=== PATIENT | male | born 1960 | race Caucasian/White ===

== ENCOUNTER 2018-01-02 07:02 | Inpatient (IN) | payer OTHER ==
[2018-01-02] VITALS (27 sets, daily range): BP systolic 131–233; BP diastolic 79–175
[~2018-01-02] VITALS: Ht 180.3 cm; Wt 113.2 kg
--- NOTE | ~2018-01-02 | HC ---
[facility] [place] [address] CONSULTATION Name: CHIQUITAMEG Mabel Room #: 210-P ADM IN M.R.#: [id number] Admission: 01/02/18 Attend Phys: Darius Shelby DO Discharge: Date of : 64 Report #: [id number] THIS REPORT FOR: //name// CC: Darius Batistaen Oj DATE OF SERVICE: 01/06/2018 HISTORY OF PRESENT ILLNESS: The patient is a 57-year-old white male who was admitted with acute shortness of breath with respiratory failure. During his hospitalization, he had the onset of weakness of his left upper extremity with some symptoms involving the right upper extremity as well. He was seen by Neurology and noted to have left upper extremity weakness more than left lower extremity, and has been diagnosed with a CVA. He does not have multiple medical comorbidities and there was a question as to whether he did undergo an MRI or not, but he is going for an MRI of the brain later on today. He does have the diagnosis of a CVA with left-sided weakness, upper extremity more than lower extremity. He also has chronic kidney disease, likely stage 2 with some previous proteinuria. He has hypertension with cardiomyopathy. He is being closely monitored with Cardiology, Nephrology and Neurology all involved. He needs permissive hypertension because of his stroke. Renal has recommended, blood pressure of above 160 and Cardiology is involved as well. We are seeing him in rehabilitation medicine consultation. PAST MEDICAL HISTORY: Includes chronic pain syndrome with an intrathecal pump that has been nonfunctional since 2013. He has a history of asthma, pulmonary embolism, obstructive sleep apnea, multiple knee surgeries and is noted to be on disability. History of diabetes mellitus, obstructive sleep apnea. MEDICATIONS: Please see the full medication listing. ALLERGIES: TAPE, TETANUS TOXOID, BENZOIC ACID AND AMITRIPTYLINE. HABITS: No history of tobacco or alcohol abuse. SOCIAL HISTORY: He lives in an apartment alone. No adaptive devices, 6 steps in, 15 inside, on disability with lower extremity surgeries as noted above. He does have sisters who are involved. REVIEW OF SYSTEMS: Did not offer any current complaints of chest pain, shortness of breath, or abdominal discomfort. Complains of left upper extremity more than left lower extremity weakness. He also has some right upper extremity symptoms. PHYSICAL EXAMINATION: GENERAL: A 57-year-old ambidextrous white male, in no obvious distress. [address] [address] CONSULTATION Name: CHIQUITAMEG Mabel Room #: 210-P [facility] IN .R.#: [id number] Admission: 01/02/18 Attend Phys: Darius Shelby DO Discharge: Date of : 64 Report #: [id number] VITAL SIGNS: Last recorded temperature is 98.2, pulse 74, respirations 18, blood pressure 152/107. He is alert. HEENT: Appeared to be benign. NEUROLOGIC: Cranial nerves are grossly intact. Facies are symmetric. No obvious visual field neglect to confrontation. Functional range of motion of the right upper extremity. He may have some mild decreased coordination of that right upper extremity. Left upper extremity reveals clumsiness with weakness, proximal strength is a grade 4-; distally, he is 3+ to 4- except for left wrist extension, which was trace to none. His employee health nurse is only fair. Limited movement of the fingers and thumb with the appearance of decreased extension. Left lower extremity strength is a grade 4-, right lower extremity appeared 4-. He does have bilateral multiple well-healed incisions from prior knee surgeries. There is no focal calf swelling. He is contact guard with sit to stand and ambulated 5 steps contact guard. Toileting is max assist and is unable to use that left upper extremity functionally to assist with toileting. ASSESSMENT: A 57-year-old white male with the following problem list: 1. Cerebrovascular accident with left-sided hemiparesis, upper extremity more than lower extremity. 2. Acute respiratory failure. 3. Hypertensive emergency. 4. Elevated blood sugars with hemoglobin A1c, Accu-Cheks being checked. 5. Electrolyte abnormalities. 6. Chronic pain with malfunctioning intrathecal pump. 7. Obstructive sleep apnea. 8. Disability with prior multiple lower extremity surgeries. PLAN: He is to undergo an MRI of his brain. Therapies are working with him. He certainly may benefit from a short acute in-hospital inpatient rehabilitation stay to maximize his functional independence. He does have considerable comorbidity issues with monitoring of his blood pressure with allowed permissive hypertension with the multiple customs consultant physicians that are involved. The customs consultant physicians could continue to follow with him while he is on the acute rehab stark. We will be glad to follow along with you regarding his rehab therapy needs. <ELECTRONICALLY SIGNED> By: Joel Flores MD 01/07/18 0857 1224 [id number] Joel Flores MD /PRIYA
--- NOTE | ~2018-01-02 | 2DMMODE ---
[facility] [place] [employer] [place] [address] 2 D/M-MODE ECHOCARDIOGRAM Name: MEG PORRAS Room #: 246-P [facility] IN .R.#: [id number] Admission: 01/02/18 Attend Phys: Darius Shelby, Discharge: Date of : 64 Date of Service: 01/02/18 1522 Report #: [id number] THIS REPORT FOR: //name// APPROVED REPORT Study performed: 01/02/2018 13:43:28 EXAM: Comprehensive 2D, Doppler, and color-flow Echocardiogram Patient Location: ICU Room #: 246 Status: routine BSA: 0.84 HR: 61 bpm BP: 150/96 mmHg Other Information Study Quality: Adequate Indications Dyspnea Tachycardia Hypertension/HDD Echo Enhancing Agent Indication: Endocardial border delineation Agent(s) / Amount(s) Used: Optison 3 cc 2D Dimensions RVDd: 34.39 mm LVEF(%): 30.06 (>50%) IVSd: 14.78 (7-11mm) LVOT Diam: 23.46 (18-24mm) LVDd: 56.12 mm PWd: 14.95 (7-11mm) Ascending Ao: 33.28 (22-36mm) LVDs: 48.09 (25-40mm) Aortic Root: 30.91 mm IVC: 24.00 mm Combs's LVEF: 30.06 % Volumes Left Atrial Volume (Systole) Single Plane 4CH: 58.87 mL Single Plane 2CH: 75.64 mL LA ESV Index: 89.00 mL/m2 Aortic Valve AoV Peak Paul.: 1.10 m/s AO Peak Gr.: 4.88 mmHg LVOT Max P.98 mmHg LVOT Max V: 0.86 m/s [facility] [place] [employer] [place] [address] 2 D/M-MODE ECHOCARDIOGRAM Name: MEG PORRAS Room #: 246-P [facility] IN .R.#: [id number] Admission: 01/02/18 Attend Phys: Darius Shelby, Discharge: Date of : 64 Date of Service: 01/02/18 1522 Report #: [id number] YECENIA Vmax: 3.38 cm2 Pulmonary Valve PV Peak Paul.: 0.81 m/s PV Peak Gr.: 2.62 mmHg Tricuspid Valve TR Peak Paul.: 2.69 m/s TR Peak Gr.: 29.01 mmHg PA Pressure: 39.00 mmHg Left Ventricle Left ventricle is at the upper limits of normal. Moderate concentric left ventricular hypertrophy. Left ventricular ejection fraction is moderate to severely decreased. LVEF is 25-30%. This study is not technically sufficient to allow evaluation of the LV diastolic function. Right Ventricle The right ventricle is normal size. The right ventricular systolic function is normal. Atria Left atrium is dilated. Right atrium is at the upper limits of normal. Aortic Valve The aortic valve is normal in structure. No aortic regurgitation is present. There is no aortic valvular stenosis. Mitral Valve The mitral valve is normal in structure. Mild mitral regurgitation. No evidence of mitral valve stenosis. Tricuspid Valve The tricuspid valve is normal in structure. There is trace tricuspid regurgitation. Estimated PAP 39 mmHg There is mild-moderate pulmonary hypertension. Pulmonic Valve The pulmonary valve is normal in structure. Trace pulmonic regurgitation. Great Vessels The aortic root is normal in size. IVC is dilated and collapses <50% with inspiration. [facility] [address] [place] [address] 2 D/M-MODE ECHOCARDIOGRAM Name: MEG PORRAS Room #: 246-P [facility] IN .R.#: [id number] Admission: 01/02/18 Attend Phys: Darius Shelby, Discharge: Date of : 64 Date of Service: 01/02/18 1522 Report #: [id number] Pericardium Small circumferential pericardial effusion. <Conclusion> Left ventricle is at the upper limits of normal. Moderate concentric left ventricular hypertrophy. Left ventricular ejection fraction is moderate to severely decreased. LVEF is 25-30%. This study is not technically sufficient to allow evaluation of the LV diastolic function. The right ventricle is normal size. Left atrium is dilated. The aortic valve is normal in structure. There is no aortic valvular stenosis. Mild mitral regurgitation. There is trace tricuspid regurgitation. Estimated PAP 39 mmHg There is mild-moderate pulmonary hypertension. The aortic root is normal in size. Small circumferential pericardial effusion. <ELECTRONICALLY SIGNED> By: Francisco Burroughs MD, FACC 01/02/18 1522 1522 152 Francisco Burroughs MD, FACC /INF
--- NOTE | ~2018-01-02 | EKG ---
[place] [address] [address] [place] [address] ELECTROCARDIOGRAM REPORT Name: MEG PORRAS Room #: 210-P ADM IN M.R.#: [id number] Admission: 01/02/18 Attend Phys: Darius Shelby DO Discharge: Date of : 64 Report #: [id number] THIS REPORT FOR: //name// [facility] Test Date: 2018-01-05 Test Time: 09:59:43 Pat Name: MEG GOMEZMari Department: Room: 210 P Gender: M Wool Hat Flanger: RIVAS : 1960 Requested By: Phil Rodríguez Order Number: [id number] MD: Phil Rodríguez Measurements Intervals [place] Rate: 89 P: 49 OK: 141 QRS: -1 QRSD: 119 T: 191 QT: 411 QTc: 501 Interpretive Statements Sinus rhythm Probable left atrial enlargement LVH with secondary repolarization abnormality Electronically Signed On 01-05-2018 10:28:59 RECORDS MANAGEMENT CLERK by Phil Rodríguez [email or web address] <ELECTRONICALLY SIGNED> By: Phil Rodríguez MD 01/05/18 1028 0959 0959 Phil Rodríguez MD /JEVON
--- NOTE | ~2018-01-02 | EKG ---
[place] [address] [place] [address] ELECTROCARDIOGRAM REPORT Name: MEG PORRAS Room #: 246-P ADM IN M.R.#: [id number] Admission: 01/02/18 Attend Phys: Darius Shelby DO Discharge: Date of : 64 Report #: [id number] THIS REPORT FOR: //name// [facility] ED Test Date: 2018-01-02 Test Time: 07:08:22 Pat Name: MEG PORRAS Department: Room: 246 Gender: M Cemetery Workers Supervisor: Linda FRENCH : 1960 Requested By: Shamar Miguel Order Number: [id number] MD: Cas Avilez Measurements Intervals [place] Rate: 141 P: 0 [place]: QRS: -23 QRSD: 172 T: 135 QT: 371 QTc: 568 Interpretive Statements Wide complex tachycardia Left bundle branch block Compared to ECG 04/11/2013 10:43:06 Left bundle-branch block now present Sinus rhythm no longer present Electronically Signed On 01-02-2018 15:59:34 CUBE MACHINE TENDER by Cas Avilez [email or web address] <ELECTRONICALLY SIGNED> By: Cas Avilez MD, [facility] 01/02/18 1559 0708 0708 Cas Avilez MD, [facility] /EPI
--- NOTE | ~2018-01-02 | CATHLAB ---
[facility] [address] [place] [address] INVASIVE PROCEDURE REPORT Name: GOMEZMariMEG Mabel Room #: 246-P [facility] IN ..#: [id number] Admission: 01/02/18 Attend Phys: Darius Shelby, Discharge: Date of : 64 Date of Service: 01/03/18 1102 Report #: [id number] THIS REPORT FOR: //name// APPROVED REPORT Patient Details Patient Status: In-Patient Room #: The patient is a 57 year-old male Event Personnel Francisco Burroughs Document Imaging Manager, Eric Lambert RN, Shreya Gamino RTR, Tamara Xavier David Monitor Procedures Performed Art Access - R femoral artery* Candido Access - R femoral vein Right and Left Heart Cath Lt Vent/Cors/Grafts [id number] RLLVCORCAB Renal Bilateral Peripheral Angiography [id number] CVRENALBIL Hemostasis w/ Mynx Procedure Narrative The patient was brought urgently to the Cardiac Catheterization Laboratory and was prepped and draped in a sterile manner. The Right Groin^ was infiltrated with 1% Lidocaine subcutaneous anesthesia. A PINNACLE 6FR Sheath #[id number] sheath was inserted into the RFA^. Coronary angiography was performed using coronary diagnostic catheters. The right coronary system was accessed and visualized with a JR 4 catheter. The left coronary system was accessed and visualized with a JL 4 catheter. The left ventricle was accessed and visualized with a Pigtail catheter. Left ventriculogram was performed in ALVARENGA projection. Closure device was deployed with a 6 Fr Mynx. The patient tolerated the procedure well and there were no complications associated with the procedure. There was no hematoma. Intraoperative Conscious Sedation Sedation start time: 07:57 Case end Time: 08:16 Fentanyl 50 mcg Versed 1.5 mg Fluoro Time: 9.15 minutes Dose: 915 mGy Contrast Type and Amount: Visipaque 140 ml Hemodynamics The right ventricular pressure is 54/15 mmHg. The pulmonary artery pressure is 49/32 mmHg with a mean of 37 mmHg. The mean pulmonary [facility] [address] [place] [address] INVASIVE PROCEDURE REPORT Name: MEG PORRAS Room #: 246-P [facility] IN ..#: [id number] Admission: 01/02/18 Attend Phys: Darius Shelby, Discharge: Date of : 64 Date of Service: 01/03/18 1102 Report #: [id number] capillary wedge pressure is 27 mmHg. The aortic pressure is 133/83 mmHg with a mean of 87 mmHg. The left ventricular pressure is 141/20 mmHg with a mean of mmHg. The left ventricular end diastolic pressure is 31 mmHg. The cardiac output using thermo method is 7.83 L/min. Conclusion #1 successful right heart catheterization with elevated pulmonary A wedge pressure see above hemodynamics #2 mild to moderate global hypokinesis with 2+ mitral regurgitation EF 40-45%. (Markedly improved over echo findings yesterday) #3 abdominal aorta is intact without evidence of aneurysm or significant stenosis #4 selective angiography bilateral renal arteries widely patent #5 normal coronary anatomy in a right dominant system. No occlusive disease noted Recommendations and plan continue aggressive risk factor modification continue aggressive diuresis. Afterload reduction blood pressure control increase beta layo <ELECTRONICALLY SIGNED> By: Francisco Burroughs MD, FACC 01/03/18 1102 110 110 Francisco Burroughs MD, FACC /INF
--- NOTE | ~2018-01-02 | CNG ---
[facility] [place] [address] CYTO-NONGYN REPORT PROCEDURE Name: MEG JUAN Room #: 210-P ADM IN M.R.#: [id number] Admission: 01/02/18 Date of : 64 Discharge: Report #: [id number] Path Case #: [id number] CYTOPATHOLOGY REPORT COLLECTION DATE: 01/06/2018 RECEIVED DATE: 01/06/2018 SUBMITTING PHYS: Dr. Ramu Adan OTHER PHYS: Dr. Darius Mcwilliams CLINICAL HISTORY: Chest pain, CHF, Hypoxia, ACCEL HTN SPECIMEN(S) RECEIVED: A.Sputum * * * * * * * * * * * * FINAL DIAGNOSIS: A. Sputum: - Inadequate specimen, no macrophages identified. Squamous cells and blood in a background of mucous. PATHOLOGIST: Nikhil Sims M.D. REPORT ELECTRONICALLY SIGNED BY: Nikhil Sims M.D. DATE/TIME: 01/07/2018 10:32 * * * * * * * * * * * * GROSS PATHOLOGY: A. Sputum: The specimen is submitted unfixed, labeled "Meg Juan". Received by the Cytology Department is less than one mL of cloudy yellow fluid. One ThinPrep slide was prepared. (mm 01.06.2018) WET CROWN BLOCKING OPERATOR(S): JAYY Bloom(ASCP)IAC INITIAL CPT CODE(S): A; 62341 Professional services performed by [facility] at [facility] [address], [place] [address] Technical services performed by [facility] at [address] [place] [address]., [address], [place] [address]. [facility] [address] [place] [address], [facility] [address] [place], [place] [address] [place] [address] [place] [address] CYTO-NONGYN REPORT PROCEDURE Name: MEG JUAN Room #: 210-P ADM IN M.R.#: [id number] Admission: 01/02/18 Date of : 64 Discharge: Report #: [id number] Path Case #: [id number] PHONE: [phone] DIRECTOR: Garth Ramirez M.D. * * * END OF REPORT * * *
--- NOTE | ~2018-01-02 | TEE ---
[facility] [address] [place] [address] TRANSESOPHAGEAL ECHOCARDIOGRAM Name: MEG PORRAS Room #: 210-P [facility] IN .R.#: [id number] Admission: 01/02/18 Attend Phys: Darius Shelby, Discharge: Date of : 64 Date of Service: 01/08/18 0953 Report #: [id number] THIS REPORT FOR: //name// APPROVED REPORT Study performed: 01/08/2018 07:51:12 EXAM: Comprehensive 2D, Doppler, and color-flow Echocardiogram Patient Location: [facility] Room #: 210 Status: routine BSA: 2.29 HR: 89 bpm BP: 161/100 mmHg Rhythm: NSR Other Information Study Quality: Good Indications CVA/TIA Echo Enhancing Agent Indication: Rule out Shunt Agent(s) / Amount(s) Used: Agitated Saline 7 cc Procedure After obtaining informed consent, patient underwent transesophageal echo in the Marketing Planning Manager Holding. Type of Sedation : Conscious Sedation Sedation was administered by Pretty Hoyos RN. Sedation start time: 826 Case end Time: 832 Sedation was achieved intravenously with: Versed (4) Fentanyl (50) Transesophageal probe was inserted and advanced into esophagus without difficulty by Cas Avilez MD. Echo enhancement indication: R/O Septal defect. Echo enhancement agent administered: Agitated Saline The URIEL was performed without complications. Throughout the procedure, the blood pressure, pulse oximetry, cardiac rhythm, and rate were monitored. The patient tolerated the procedure without adverse effects. Recovery from conscious sedation was uneventful and vital signs were stable. [facility] [address] [place] [address] TRANSESOPHAGEAL ECHOCARDIOGRAM Name: MEG PORRAS Room #: 210-P [facility] IN .R.#: [id number] Admission: 01/02/18 Attend Phys: Darius Shelby, Discharge: Date of : 64 Date of Service: 01/08/18 0953 Report #: [id number] Left Ventricle The left ventricle is normal size. There is normal LV segmental wall motion. Moderate concentric left ventricular hypertrophy. Left ventricular systolic function is moderately decreased. No left ventricle thrombus noted on this study. LVEF is 40-45%. Right Ventricle The right ventricle is normal size. The right ventricular systolic function is normal. Atria Left atrium is dilated. No masses or clots in the left atrium or left atial appendage. No shunting by contrast bubble injection The right atrium size is normal. Aortic Valve The aortic valve is normal in structure, trileaflet No aortic regurgitation is present. There is no aortic valvular stenosis. Mitral Valve The mitral valve is normal in structure. Mild mitral regurgitation. No evidence of mitral valve stenosis. Tricuspid Valve The tricuspid valve is normal in structure. Trace tricuspid regurgitation. Pulmonic Valve The pulmonary valve is normal in structure. Trace pulmonic regurgitation. Great Vessels The aortic root is normal in size. The ascending aorta is normal in size. IVC is normal in size and collapses >50% with inspiration. Pericardium There is no pericardial effusion. Critical Notification Physician Notified Date: 01/08/2018 No cardiac source of embolus [facility] [place] [address] [address] [place] [address] TRANSESOPHAGEAL ECHOCARDIOGRAM Name: MEG PORRAS Room #: 210-P ADM IN .R.#: [id number] Admission: 01/02/18 Attend Phys: Darius Shelby, Discharge: Date of : 64 Date of Service: 01/08/18 0953 Report #: [id number] <Conclusion> Left ventricular systolic function is moderately decreased. There is normal LV segmental wall motion. Moderate concentric LVH LVEF 40-45%. Left atrium is dilated. No masses or clots in the left atrium or left atial appendage. No shunting by contrast bubble injection The aortic valve is normal in structure, trileaflet. No aortic regurgitation or stenosis. The mitral valve is normal in structure. Mild mitral regurgitation. The ascending aorta is normal in size. There is no pericardial effusion. <ELECTRONICALLY SIGNED> By: Cas Avilez MD, [facility] 01/08/1853 0953 0953 Cas Avilez MD, FACC /INF
--- NOTE | ~2018-01-02 | HC ---
[facility] [place] [address] CONSULTATION Name: MEG PORRAS Room #: 210-P ADM IN M.R.#: [id number] Admission: 01/02/18 Attend Phys: Darius Shelby DO Discharge: Date of : 64 Report #: [id number] THIS REPORT FOR: //name// CC: Darius Mcwilliams REASON FOR CONSULTATION: Vascular congestions and need for diuresis, status post CTA with remote history of contrast-induced nephropathy in the past. REASON FOR PRESENTATION: Shortness of breath. HISTORY OF PRESENT ILLNESS: This is a very noncompliant patient with history of hypertension, obstructive sleep apnea. It looks like that he has not seen a doctor for the last 3 years. He was not taking any of his blood pressure medications. He presented to the Emergency Room yesterday reporting that he had shortness of breath. He had a remote history of pulmonary embolism. He has had repeated episodes of acute kidney injury and was fully evaluated by Dr. Ayers. Please refer to those notes back in 2012 and 2016 where he fully explained and delineated the patient history. On presentation, he was found to have a creatinine of 1.2; however, because of his history of acute kidney injury post-contrast, I am being consulted to manage accordingly. He is known to have had cardiac catheterization in 2005, which revealed normal coronary arteries. He was admitted yesterday to further evaluate after he was being found to have a blood pressure of 251/175. He stated that he has not taken any of his medications for the last few years. He is running through some difficult financial issues and not able to afford his medications. PAST MEDICAL HISTORY: 1. Repeated episodes of acute kidney injury, resolving. 2. Asthma. 3. Depression. 4. Anxiety. 5. PE. 6. Hypertension. 7. Diabetes mellitus. PAST SURGICAL HISTORY: Cardiac catheterization. FAMILY HISTORY: Both parents have coronary artery disease. SOCIAL HISTORY: No drug or alcohol abuse. He is currently stable. REVIEW OF SYSTEMS: GENERAL: No fever or chills. CARDIOVASCULAR: As per history of present illness. PULMONARY: As per the history of present illness. GASTROINTESTINAL: No nausea or vomiting. [facility] [address] [place] [address] CONSULTATION Name: MEG PORRAS Mabel Room #: 210-P [facility] IN M.R.#: [id number] Admission: 01/02/18 Attend Phys: Darius Shelby DO Discharge: Date of : 64 Report #: [id number] GENITOURINARY: No frequency, urgency. NEUROLOGICAL: No headache, no dizziness. SKIN: No rash or ulcerations. MUSCULOSKELETAL: Known right knee issues after his surgeries. OUTPATIENT MEDICATIONS: Ibuprofen, Famotidine. PHYSICAL EXAMINATION: GENERAL: He is alert, oriented, in no apparent distress. VITAL SIGNS: Blood pressure is 158/90. HEAD AND NECK: No jugular venous distention, no bruit, no thyromegaly. CHEST: Clear to auscultation bilaterally with very minimal crackles bilaterally. CARDIOVASCULAR: Regular, with no rub. ABDOMEN: Soft, nontender with no hepatosplenomegaly. LOWER EXTREMITIES: No edema. LABORATORY VALUES: Reviewed. Creatinine stable at 1.3. Blood sugar is 377. Troponin is mildly elevated. UA with plus protein. Imaging including his chest x-ray reviewed. ASSESSMENT, IMPRESSION AND PLAN: 1. Untreated hypertension due to noncompliance. 2. Newly diagnosed diabetes mellitus. 3. Noncompliance. 4. As for now, continue to address his blood pressure. Cardiology is adjusting. He needs to be on an angiotensin receptor layo and this had already been started. 5. Gentle IV diuresis today and switch to p.o. regimen tomorrow. 6. Watch electrolytes. 7. Watch creatinine as he is known to have repeated episodes of acute kidney injury after contrast. 8. Cardiology managing his chest pain. 9. Pulmonary is also on board. 10. Primary team is adjusting his blood sugar regimen. 11. We will send appropriate basic chronic kidney disease workup. <ELECTRONICALLY SIGNED> By: Carolyn Bianchi MD 01/04/18 1151 [id number] [id number] Carolyn Bianchi MD /nt
--- NOTE | ~2018-01-02 | HC ---
[facility] [place] [address] CONSULTATION Name: MEG PORRAS Room #: 210-P [facility] IN M.R.#: [id number] Admission: 01/02/18 Attend Phys: Darius Shelby DO Discharge: 01/08/18 Date of : 64 Report #: [id number] THIS REPORT FOR: //name// CC: Darius Mcwilliams DATE OF SERVICE: 01/04/2018 HISTORY OF PRESENT ILLNESS: This is a 57-year-old male patient who was evaluated by me for numbness and weakness in both upper extremities. He indicated that this numbness started with the right hand and it was pretty significantly numb and then the whole arm became numb. He became better from it, but then the left arm became numb. Now, he is pretty significantly weak and incoordinated in the left upper extremity. He believed this happened around midnight or somewhat earlier than that. He also had ambulation difficulty when he went to the bathroom, but he does not know how long this ambulation difficulty has been going on because this patient has been on the bed. He denies any prior history of stroke. REVIEW OF SYSTEMS: Indicate that he has been diagnosed with a cardiac problem. He did not have any stents put in. He was admitted with hypertensive emergency and he had a prior history of contrast-induced nephropathy as I understand, but this time he underwent a contrast for the CT chest without any problem. At this time, he was admitted with shortness of breath, which was becoming worse. He does have a history of sleep apnea and hypertension. His contrast-induced nephropathy is difficult to assess because it happened sometime after a CT angiogram. So far, he is stable. He has multiple metals in his body. He has a metal clip in his face area, but he indicates he had MRI after that. He had a left ankle surgery and bilateral knee surgery and he has a pain pump, which was implanted in 2007 and he indicates that there are multiple MRI's he has since that time. He does also have a history of depression. This was a relevant 14-point review of system. PAST MEDICAL HISTORY: Multiple musculoskeletal problems. FAMILY HISTORY: Negative for any early age strokes. SOCIAL HISTORY: He does not smoke or drink. PHYSICAL EXAMINATION: Indicate he is alert. He is responsive. His speech, concentration, fund of knowledge and memory is at his baseline. Cranial nerve examination 2-12 is difficult to assess. I cannot fully exclude the possibility of hemianopsia, although he counts finger in multiple visual young. He is pretty significantly weak in the left upper extremity. His right upper extremity is strong, but he has a [id number] abnormality on both sides. So [facility] [address] [place] [address] CONSULTATION Name: MEG PORRAS Room #: 210-P [facility] IN M.R.#: [id number] Admission: 01/02/18 Attend Phys: Darius Shelby DO Discharge: 01/08/18 Date of : 64 Report #: [id number] in the left upper extremity, he is weak as well as ataxic. He does not appear to be that weak in the left leg, but appeared to be somewhat ataxic. I did not make him walk, but he tells me that he had difficulty walking to the bathroom when he tried to walk. His blood pressure last one is 160/112; when he came in his blood pressure was 251/161. His pulse is 102 and temperature is normal. LABORATORY DATA: His white count is 17.7. He did have a CT scan of the head, which was unremarkable. IMPRESSION: Clinically, the patient's finding is consistent with an ischemic event to the brain. He has a prior history of C-spine problems and I cannot fully exclude any C-spine pathology. He needs further workup. Further workup is difficult. With a history of contrast-induced nephropathy, which happened 2 months after the contrast, I am reluctant to give him a second dose of contrast or what looks like maybe third dose of contrast because he got chest CTA and a . About MRI, he is pretty certain that everything is MRI compatible, but I need to find out from MRI. That will be the test of his choice to do an MRI of the brain, MRA of the head and MRI of the neck. Until we figure out if the MRI can be done or not done, I will go ahead and do an ultrasound of the neck as well as a CT of the neck. He needs to be on antithrombotic therapy and he can be on any antithrombotic therapy, which is acceptable to urology nurse. We will discuss this patient with you. I discussed his options in great detail. More than 50 minutes of time was spent taking care of this patient today and majority of that time was spent counseling this patient as well as coordinating his care. <ELECTRONICALLY SIGNED> By: Jian Monteiro MD 01/11/18 1549 [id number] [id number] Jian Monteiro MD /nt
[~2018-01-02 07:02] MED LIST: ABILIFY 5 MG TAB5 M1 PO; ACETAMINOPHEN325 M1 PO; ALBUTEROL INH; ALBUTEROL NEB; ALIGN4 MG PO; AMBIEN 10 MG TA10 MG PO; AMBIENCR; ANALGESIC325 MG PO; ANASPAZ0.125 MG SL; ASA5UEC; ASPIRIN325 PO; ATIVAN2 MG PO; BACTRIM DS TAB1 EACH PO; BACTROBAN CREAM30 GM TOP; BACTROBAN15 GM TP; BUDESONIDE INH; CIALIS5 MG PO; CLINDAMYCIN PHO50 GM; CLONAZEPAM OR; CLONIDINE; CLONIDINE HCL0.2 M2; CLONIDINE0.1; CLOTRIMAZOLE 1%15 G1 TOP; COMBIVENT INH; COUMADIN 5 MG TA5 M1 PO; COUMADIN6 MG PO; CYMBALTA30 MG PO; CYMBALTA60 MG PO; DAZIDOX10 MG PO; DILAUDID; DUONEB 2.5-0.5 M3 ML IH; ENOXAPARIN150 MG/1 M SQ; FENTANYL PA50 MCG/HR TRANSDERM; FLAGYL500 MG PO; FLEXERIL PO; FORMOTEROL INH; FORTESTA60 GM TRANSDERM; Fentanyl; IMODIUM A-D1 MG/5 ML; IPRATROPIUM INH; IRON; LASIX 40 MG TAB40 M1 OR; LASIX 40 MG TAB40 M2 PO; LASIX 40 MG TAB40 MG PO; LIDODERM 5%1 PATCH; LISINOPRIL10 MG PO; LOMOTIL TABLET1 EACH PO; LUNESTA3 MG PO; MAGNESIUM400 MG; MECLIZINE HCL25 M1 PO; MEDROLDOSEPACK; METOLAZONE 2.52.5 M1 PO; MIRALAX255 GM PO; MORPHINE SULFAT15 M3 PO; MUCINEX22 ML; MUCINEX600 MG PO; NEURONTIN 400400 M1 PO; NORCO 5-325 TA1 EACH PO; ONDANSETRON HCL4 M2 PO; OXYCODONE HCL15 MG PO; OXYCODONE HCL5 M1 PO; OXYCONTIN20 M1 PO; OXYIR 5 MG CAPSU5 M1 PO; PAIN & FEVER325 MG; PAIN & FEVER325 MG PO; PANTOPRAZOLE SO40 MG PO; PEPCID AC20 M1 PO; PHENERGAN 25 MG25 MG PO; PHENERGAN50 MG; POTASSIUM20 PO; PRENATAL; PRILOSEC 20 MG20 MG PO; PRINIVIL20 MG PO; PROMETHAZINE HC25 M1 PO; PROVIGIL 200 M200 M1 PO; QUETIAPINE FUM100 MG PO; REQUIP OR; REQUIP XL2 MG PO; REQUIP3 MG PO; RESTORIL15 MG PO; SYMBICORT160 MCG/4. INH; SYMBICORT80 MCG/4.1 INH; TOPAMAX50 MG PO; TOVIAZ8 MG PO; TRANSDERM-SCO1 PATC1 TD; TRAZODONE 100100 MG PO; ZEGERID 40 MG1 EACH PO; ZEGERID OTC 201 EACH; ZEGERID OTC 201 EACH PO; ZOFRAN4 MG PO; ZOFRAN8 MG PO; ZOLPIDEM TART12.5 M1 PO; ZPAK PO; ZYPREXA5 MG PO; ZYRTEC; ZYRTEC 10 MG TA10 M1 PO; [UNRECOGNIZED DRUG - OTHER] IJ
[2018-01-02 07:28] LABS: BE(vivo) -2.6 mmol/L (-2 to +3); PCO2 33.7 mmHg (35.0-45.0); PO2 60.1 mmHg (80.0-100.0); pH 7.412 (7.360-7.450); sO2 91.6 % (92.0-98.0)
[2018-01-02 07:49] LABS: ABSOLUTE NEUTROPHILS 7.3 thou/uL (1.4-8.2); BASOPHILS 0.8 % (0.0-2.0); EOSINOPHILS 1.1 % (0.0-3.0); HEMATOCRIT 52.5 % (42.0-52.0); HEMOGLOBIN 18.3 gm/dL (14.0-18.0); LYMPHOCYTES 25.7 % (24.0-44.0); MCH 29.3 pg (26.0-34.0); MCHC 34.9 g/dL (28.0-37.0); MCV 84.1 fL (80.0-100.0); MONOCYTES 6.4 % (1.0-8.0); PLATELET COUNT 186 thou/uL (150-400); RBC 6.24 mil/uL (4.50-6.00); RDW 14.8 % (10.5-14.5)
[2018-01-02 08:00] LABS: CREATININE 1.2 mg/dL (0.7-1.3); POTASSIUM 3.3 mmol/L (3.5-5.1)
[2018-01-02 08:09] LABS: ALBUMIN 3.6 g/dL (3.4-5.0); APTT 30.4 Seconds (24.5-32.8); D-DIMER 0.57 ug/mLFEU (0.19-0.50); MAGNESIUM 1.6 mg/dL (1.8-2.4); PROTIME 10.7 Seconds (9.3-11.4); TOTAL PROTEIN 7.7 g/dL (6.4-8.2); TROPONIN-I 0.09 ng/mL (<0.06)
[2018-01-02 08:33] LABS: AMP/METHAMP Negative (Negative); BARBITURATES Negative (Negative); BENZODIAZEPINES Negative (Negative); COCAINE Negative (Negative); METHADONE Negative (Negative); OPIATES POSITIVE (Negative); PCP Negative (Negative)
[2018-01-02 09:22] LABS: POC ANION GAP Outside Report Range mmol/L (7-16); POC BUN 17 mg/dL (7-18); POC CA IONIZED 4.6 mg/dL (4.5-5.3); POC CHLORIDE < 68 mmol/L (98-107); POC CREATININE 0.9 mg/dL (0.6-1.3); POC GLUCOSE 335 mg/dL (70-99); POC POTASSIUM 3.3 mmol/L (3.5-5.1); POC SODIUM 140 mmol/L (136-145); POC TCO2 24 mmol/L (21-32)
[2018-01-02] MEDS ORDERED: IBUPROFEN 800800 M1 PO (09:44)
[2018-01-02] MEDS ORDERED: BENADRYL25 MG PO (09:44)
[2018-01-02] MEDS ORDERED: PEPCID20 MG PO (09:44)
[2018-01-02] MEDS ORDERED: LOPERAMIDE 2 MG2 M1 PO (09:44)
[2018-01-02 09:49] LABS: CHOLESTEROL 174 mg/dL (<200); HDL CHOLESTEROL 52 mg/dL (>40); LDL CHOLESTEROL 93 mg/dL (<100); TC:HDL 3.3 Ratio (Not establshd); TRIGLYCERIDE 146 mg/dL (<150); VLDL 29 mg/dL (<40)
[2018-01-02 18:06] LABS: GLYCOHEMOGLOBIN (HGB A1C) 9.3 % (4.8-5.6)
[2018-01-03] VITALS (18 sets, daily range): BP systolic 125–162; BP diastolic 70–103
[2018-01-03 02:49] LABS: URINE BILIRUBIN NEGATIVE (Negative); URINE BLOOD TRACE (Negative); URINE CLARITY CLEAR; URINE COLOR YELLOW; URINE GLUCOSE-RANDOM* 2+ (Negative); URINE KETONES NEGATIVE (Negative); URINE LEUKOCYTES-REFLEX NEGATIVE (Negative); URINE NITRITE-REFLEX NEGATIVE (Negative); URINE PROTEIN (DIPSTICK) 2+ (Negative); URINE SPECIFIC GRAVITY 1.015 (1.005-1.035); URINE UROBILINOGEN 0.2 E.U./dl (0.2-1.0)
[2018-01-03 04:15] LABS: CRYSTALS None Seen /LPF (None Seen); SQUAMOUS 0-3 Few /LPF (0-3); URINE RBC 0-2 Rare /HPF (0-2); URINE WBC-REFLEX 0-5 Rare /HPF (0-5)
[2018-01-03 04:16] LABS: BACTERIA-REFLEX None Seen /HPF (None Seen); HYALINE CASTS 0-3 Few /LPF (None Seen)
[2018-01-03 05:54] LABS: ABSOLUTE NEUTROPHILS 11.7 thou/uL (1.4-8.2); BASOPHILS 0.8 % (0.0-2.0); LYMPHOCYTES 6.2 % (24.0-44.0); MCH 28.7 pg (26.0-34.0); MCHC 33.7 g/dL (28.0-37.0); MCV 85.2 fL (80.0-100.0); PLATELET COUNT 216 thou/uL (150-400); RBC 4.81 mil/uL (4.50-6.00); RDW 14.9 % (10.5-14.5); WBC 12.7 thou/uL (4.0-11.0)
[2018-01-03 05:57] LABS: CALCIUM 8.7 mg/dL (8.5-10.1); CREATININE 1.3 mg/dL (0.7-1.3); MAGNESIUM 1.8 mg/dL (1.8-2.4); POTASSIUM 3.6 mmol/L (3.5-5.1)
[2018-01-03 05:58] LABS: HEMOGLOBIN 13.8 gm/dL (14.0-18.0)
[2018-01-04 04:47] LABS: ABSOLUTE NEUTROPHILS 16.5 thou/uL (1.4-8.2); BASOPHILS 0.1 % (0.0-2.0); HEMATOCRIT 47.2 % (42.0-52.0); MCHC 34.3 g/dL (28.0-37.0); MCV 84.7 fL (80.0-100.0); MONOCYTES 1.8 % (1.0-8.0); PLATELET COUNT 223 thou/uL (150-400); POLYS 93.1 % (36.0-66.0); RBC 5.57 mil/uL (4.50-6.00); RDW 14.9 % (10.5-14.5); WBC 17.7 thou/uL (4.0-11.0)
[2018-01-04 04:49] LABS: HEMOGLOBIN 16.2 gm/dL (14.0-18.0)
[2018-01-04 05:02] LABS: ALBUMIN 3.3 g/dL (3.4-5.0); CALCIUM 9.1 mg/dL (8.5-10.1); CREATININE 1.3 mg/dL (0.7-1.3); POTASSIUM 3.4 mmol/L (3.5-5.1)
[2018-01-04 05:20] VITALS: BP 142/89
[2018-01-04 05:23] LABS: LARGE PLATELETS OCCASIONAL
[2018-01-04 07:15] VITALS: BP 160/112
[2018-01-04 11:15] VITALS: BP 138/96
[2018-01-04 15:10] VITALS: BP 136/94
[2018-01-04 20:23] VITALS: BP 172/116
[2018-01-04 20:45] VITALS: BP 174/123
[2018-01-04 21:08] LABS: CREATININE 1.3 mg/dL (0.7-1.3); POTASSIUM 3.9 mmol/L (3.5-5.1)
[2018-01-05 03:51] LABS: ABSOLUTE NEUTROPHILS 14.5 thou/uL (1.4-8.2); BASOPHILS 0.1 % (0.0-2.0); HEMATOCRIT 45.6 % (42.0-52.0); HEMOGLOBIN 15.4 gm/dL (14.0-18.0); LYMPHOCYTES 6.2 % (24.0-44.0); MCH 28.8 pg (26.0-34.0); MCHC 33.8 g/dL (28.0-37.0); MCV 85.2 fL (80.0-100.0); MONOCYTES 2.2 % (1.0-8.0); PLATELET COUNT 216 thou/uL (150-400); POLYS 91.5 % (36.0-66.0); RBC 5.35 mil/uL (4.50-6.00); RDW 14.8 % (10.5-14.5); WBC 15.8 thou/uL (4.0-11.0)
[2018-01-05 03:59] LABS: ALBUMIN 2.8 g/dL (3.4-5.0); CALCIUM 8.3 mg/dL (8.5-10.1); CREATININE 1.3 mg/dL (0.7-1.3); PHOSPHORUS 4.7 mg/dL (2.5-4.9); POTASSIUM 3.7 mmol/L (3.5-5.1)
[2018-01-05 04:13] VITALS: BP 161/115
[2018-01-05 07:55] VITALS: BP 149/95
[2018-01-05 09:02] LABS: PROT/CREAT RATIO 2.6; URINE CREATININE-RANDOM* 97.4 mg/dL; URINE CREATININE-RANDOM* 98.7 mg/dL; URINE PROTEIN-RANDOM* 253.5 mg/dL (<11.9)
[2018-01-05 12:05] VITALS: BP 142/96
[2018-01-05 16:15] VITALS: BP 137/99
[2018-01-05 21:02] VITALS: BP 156/95
[2018-01-05 23:03] VITALS: BP 128/86
[2018-01-06 03:54] LABS: ALBUMIN 2.8 g/dL (3.4-5.0); CALCIUM 8.3 mg/dL (8.5-10.1); CREATININE 1.1 mg/dL (0.7-1.3); PHOSPHORUS 4.9 mg/dL (2.5-4.9); POTASSIUM 3.3 mmol/L (3.5-5.1)
[2018-01-06 04:20] VITALS: BP 149/94
[2018-01-06 07:00] VITALS: BP 152/107
[2018-01-06 11:15] VITALS: BP 130/93
[2018-01-06 15:15] VITALS: BP 138/86
[2018-01-06 20:10] VITALS: BP 140/86
[2018-01-07 04:24] VITALS: BP 156/108
[2018-01-07 05:03] LABS: ABSOLUTE NEUTROPHILS 9.5 thou/uL (1.4-8.2); BASOPHILS 0.3 % (0.0-2.0); EOSINOPHILS 0.1 % (0.0-3.0); HEMATOCRIT 50.5 % (42.0-52.0); LYMPHOCYTES 10.6 % (24.0-44.0); MCH 29.2 pg (26.0-34.0); MCHC 34.5 g/dL (28.0-37.0); MCV 84.6 fL (80.0-100.0); MONOCYTES 2.1 % (1.0-8.0); PLATELET COUNT 217 thou/uL (150-400); POLYS 86.9 % (36.0-66.0); RBC 5.96 mil/uL (4.50-6.00)
[2018-01-07 05:09] LABS: HEMOGLOBIN 17.4 gm/dL (14.0-18.0)
[2018-01-07 05:38] LABS: ALBUMIN 2.9 g/dL (3.4-5.0); CALCIUM 8.8 mg/dL (8.5-10.1); PHOSPHORUS 4.1 mg/dL (2.5-4.9); POTASSIUM 3.9 mmol/L (3.5-5.1)
[2018-01-07 07:05] VITALS: BP 163/109
[2018-01-07 11:10] VITALS: BP 136/92
[2018-01-07 15:30] VITALS: BP 154/109
[2018-01-07 19:58] VITALS: BP 146/103
[2018-01-08 04:10] LABS: ALBUMIN 2.8 g/dL (3.4-5.0); CALCIUM 8.7 mg/dL (8.5-10.1); CREATININE 1.2 mg/dL (0.7-1.3); PHOSPHORUS 4.1 mg/dL (2.5-4.9); POTASSIUM 3.9 mmol/L (3.5-5.1)
[2018-01-08 04:32] VITALS: BP 154/118
[2018-01-08 12:34] VITALS: BP 173/111
[2018-01-08] MEDS ORDERED: CEFDINIR300 MG PO (13:17)
[2018-01-08] MEDS ORDERED: PLAVIX 75 MG TA75 M1 PO (13:18)
[2018-01-08] MEDS ORDERED: NORVASC10 MG PO (13:19)
[2018-01-08] MEDS ORDERED: CARVEDILOL25 MG PO (13:19)
[2018-01-08] MEDS ORDERED: COZAAR 50 MG TA50 M1 PO (13:20)
[2018-01-08] MEDS ORDERED: ASA5UEC PO (13:21)
[2018-01-08] MEDS ORDERED: ASPIR 8181 MG PO (13:21)
[2018-01-08] MEDS ORDERED: MUCINEX600 MG PO (13:23)
[2018-01-08] MEDS ORDERED: HYDROCODONE-AP1 EAC6 PO (13:23)
[2018-01-08] MEDS ORDERED: TORSEMIDE20 MG PO (13:23)
[2018-01-08] MEDS ORDERED: LANTUS100 UNIT/M SUBQ (13:24)
[2018-01-08] MEDS ORDERED: NOVOLOG100 UNIT/1 SUBQ (13:24)
[2018-01-08] MEDS ORDERED: PREDNISONE 10 M10 MG PO (13:26)
[2018-01-08 15:49] VITALS: BP 134/97
[2018-01-23] MEDS ORDERED: BENICAR40 MG PO (13:34)
== END 2018-01-08 16:24 | DRG 871 ==
LOC: ER 07:02 → ICU 08:18 → EROBS 08:18 → ICU 10:21 → 2N 01-03 16:16 → ENTRNSPT 01-08 16:10 → 2N 01-08 16:24
PROVIDERS: Emergency Medicine; Family Medicine; Hospitalist; Internal Medicine Nephrology; Nurse Practitioner
DX: A41.9 Sepsis, unspecified organism (principal); J18.9 Pneumonia, unspecified organism; J96.01 Acute respiratory failure with hypoxia; J96.02 Acute respiratory failure with hypercapnia; I16.1 Hypertensive emergency; J98.11 Atelectasis; I13.0 Hypertensive heart and chronic kidney disease with heart failure and stage 1 through stage 4 chronic kidney disease, or unspecified chronic kidney disease; F41.9 Anxiety disorder, unspecified; J45.909 Unspecified asthma, uncomplicated; G43.909 Migraine, unspecified, not intractable, without status migrainosus; F32.9 Major depressive disorder, single episode, unspecified; I50.9 Heart failure, unspecified; R00.0 Tachycardia, unspecified; S99.919A Unspecified injury of unspecified ankle, initial encounter; N18.2 Chronic kidney disease, stage 2 (mild); E87.6 Hypokalemia; D75.1 Secondary polycythemia; E83.42 Hypomagnesemia; G47.33 Obstructive sleep apnea (adult) (pediatric); E11.65 Type 2 diabetes mellitus with hyperglycemia; G89.4 Chronic pain syndrome; Z60.2 Problems related to living alone; E66.9 Obesity, unspecified; Z88.7 Allergy status to serum and vaccine; Z88.8 Allergy status to other drugs, medicaments and biological substances; Z86.711 Personal history of pulmonary embolism; Z82.49 Family history of ischemic heart disease and other diseases of the circulatory system; Z68.34 Body mass index [BMI] 34.0-34.9, adult; Z91.14 Patient's other noncompliance with medication regimen; Z79.899 Other long term (current) drug therapy; Z79.82 Long term (current) use of aspirin; Z28.21 Immunization not carried out because of patient refusal
CPT/HCPCS: 10078; 10081

== ENCOUNTER 2018-01-08 14:02 | Inpatient (IN) | payer OTHER ==
[~2018-01-08] VITALS: Ht 180.3 cm; Wt 114.3 kg
--- NOTE | ~2018-01-08 | H ---
[facility] [place] [address] HISTORY AND PHYSICAL Name: MEG PORRAS Mabel Room #: 501-A ADM IN M.R.#: [id number] Admission: 01/08/18 Attend Phys: Joel Flores MD Discharge: Date of : 64 Report #: [id number] THIS REPORT FOR: //name// CC: Joel Mcwilliams DATE OF SERVICE: 01/08/2018 HISTORY AND PHYSICAL AND POST-ADMISSION PHYSICIAN EVALUATION HISTORY OF PRESENT ILLNESS: The patient is a 57-year-old male who was originally admitted to [facility] on 01/02/2018 with acute shortness of breath with respiratory failure. During his hospitalization, he had the onset of weakness of his left upper extremity with some symptoms involving the right upper extremity as well. He was seen by Neurology and noted to have left upper extremity weakness more than left lower extremity weakness and was diagnosed with a CVA. He has multiple medical comorbidities and there was a question as to whether he should undergo an MRI. He was diagnosed clinically with a CVA with left-sided weakness, upper extremity more than lower extremity. MRI did confirm multiple bilateral peripheral cortical foci of abnormal diffusion, parietal as well as multiple smaller frontal subcortical and cortical foci. There also was noted to be a left cerebellar CVA. He was noted to have multiple infarcts. MRI of the cervical spine showed some degenerative arthritis. No spinal stenosis. The patient was noted to have a significant functional decline from his premorbid status and has been admitted now for acute in-hospital inpatient rehabilitation. PAST MEDICAL HISTORY: Includes chronic kidney disease, likely stage 2 with some previous proteinuria. He has a history of hypertension with cardiomyopathy. He was monitored closely by Cardiology, Nephrology, Neurology, and needed some permissive hypertension post his above CVA. His past history also includes chronic pain syndrome with an intrathecal pump that has been nonfunctional since 2013. He has a history of asthma, pulmonary embolism, obstructive sleep apnea, multiple knee surgeries and is noted to be on disability. History of diabetes mellitus and obstructive sleep apnea. MEDICATIONS: Please see the full medication listing. This includes vitamins, herbal supplements. ALLERGIES: TAPE, TETANUS, TOXOID, BENZOIC ACID AND AMITRIPTYLINE. HABITS: No history of tobacco or alcohol abuse. SOCIAL HISTORY: Lives in an apartment alone. No adaptive devices, 6 steps in, 15 inside, was on disability with lower extremity surgeries as noted above. He has sisters who are involved. [address] [address] HISTORY AND PHYSICAL Name: GOMEZMariMEG Room #: 501-A [facility] IN [facility].#: [id number] Admission: 01/08/18 Attend Phys: Joel Flores MD Discharge: Date of : 64 Report #: [id number] REVIEW OF SYSTEMS: No current complaints of chest pain, shortness of breath, abdominal discomfort. He has left upper extremity more than left lower extremity weakness. Some right upper extremity symptoms as well. PHYSICAL EXAMINATION: GENERAL: A 57-year-old ambidextrous white male in no obvious distress. VITAL SIGNS: Last recorded temperature 98.4, pulse 77, respirations 18, blood pressure 149/102. HEENT: Appeared to be benign. NEUROLOGIC: Cranial nerves grossly intact. Facies were symmetric. No obvious visual field neglect to confrontation. CHEST: Sounded clear to auscultation. CARDIOVASCULAR: Regular rate and rhythm. ABDOMEN: Bowel sounds positive, nontender. GENITOURINARY AND RECTAL: Deferred. EXTREMITIES: Left upper extremity is definitely clumsy with strength only a grade 3-3+/5. He has considerable difficulty with any attempt of [id number] and has very poor coordination of that left hand. Right upper extremity is better at a grade 4-/5. Left lower extremity strength is of grade 3+/5, right lower extremity is 4-. He has multiple bilateral well-healed incisions from prior knee surgeries. No focal calf swelling. Transfers have been min assist with gait, mod assist 300 feet. No clonus. Tone of the left upper extremity is definitely decreased. No distal lower extremity edema. ASSESSMENT: A 57-year-old white male with the following problem list: 1. Multiple cerebrovascular accidents as noted including multiple bilateral parietal, multiple smaller frontal subcortical as well as a left cerebellar cerebrovascular accident. 2. Left hemiparesis, more than right. 3. Left hemisensory deficit, appears to be relatively mild. 4. Significant functional mobility and ADL deficits. He may warrant some speech therapy, but will need to see how he does in therapies. He appears to be able to communicate quite well. 5. Acute respiratory failure. 6. Hypertensive emergency. 7. Elevated blood sugars with hemoglobin A1c, Accu-Cheks being monitored. 8. Electrolyte abnormalities. 9. Chronic pain with malfunctioning intrathecal pump. 10. Obstructive sleep apnea. 11. Disability with multiple prior lower extremity surgeries. PLAN: The patient is admitted for acute in-hospital inpatient rehabilitation. From a post-admission physician evaluation, there are no relevant changes since the preadmission screening. Please see the above review of prior and current medical and functional conditions and comorbidities. Please see the patient's [facility] [address] [place] [address] HISTORY AND PHYSICAL Name: MEG PORRAS Room #: 501-A ADM IN [place].#: [id number] Admission: 01/08/18 Attend Phys: Joel Flores MD Discharge: Date of : 64 Report #: [id number] previous and current functional status. As far as the risk of complications, he has the multiple medical comorbidities as noted above. Initial plan of care involves the interdisciplinary acute inpatient rehabilitation program with goal of maximizing his functional independence, so he can hopefully return back to his prior living situation. Measurable functional goals would be for him to become modified independent ideally with mobility and ADLs at least at the walker level. Prognosis is reasonably good with estimated length of stay at least 10 days to 2 weeks and likely longer with his lower functional level depending upon how he does. Potential barriers would include his multiple medical comorbidities and decreased functional status. <ELECTRONICALLY SIGNED> By: Joel Flores MD 01/16/18 1124 1033 1125 Joel Flores MD /[facility]
--- NOTE | ~2018-01-08 | HC ---
[facility] [place] [address] CONSULTATION Name: MEG PORRAS Room #: 501-A [facility] IN ..#: [id number] Admission: 01/08/18 Attend Phys: Joel Flores MD Discharge: Date of : 64 Report #: [id number] THIS REPORT FOR: //name// CC: Joel Batistaen Oj DATE OF SERVICE: 01/09/2018 TYPE OF REPORT: Neurobehavioral status exam. ATTENDING PHYSICIAN: Joel Flores M.D. ITALIAN TUTOR: Gerard Boyle, PhD. CLINICAL PRESENTATION: The patient is a 57-year-old male admitted to [facility] rehabilitation unit for a comprehensive inpatient rehabilitation program to improve functional mobility, activities of daily living and self-care and mental status secondary to deficits from a cerebrovascular accident noted it with multiple bilateral parietal and a smaller frontal subcortical as well as left cerebellar CVA. There were multiple infarcts noted on the brain imaging. The patient has a past medical history that includes chronic kidney disease, hypertension with cardiomyopathy, chronic pain disorder, asthma, pulmonary embolism, obstructive sleep apnea, multiple knee surgeries and a history of diabetes and obstructive sleep apnea. A complete description of his medical condition, history and medications can be found in his medical record. Neuropsychological consultation was requested to provide assistance in the assessment of cognitive and emotional status and to provide recommendations and services. Prior to this most recent admission, the patient reports living independently in his own home. The patient has one child. He has 4 sisters and 1 brother. His brother lives with outside the [place] area. The patient has been disabled since 2006 for multiple medical comorbidities. He had a TBI in 2015 in which he was sleepwalking and then found prone on his floor after yelling for assistance. The patient was combative at the scene. He reports having an adequate support group of family and peers. The patient indicates he was independent with instrumental activities of daily living including driving prior to this recent medical event. 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 TECHNIQUES UTILIZED: Clinical interview, review of medical records, staff consultation and behavioral observation, mini mental status exam 2 standard version, clock drawing and calibrated ideational fluency assessment (letter and category). EXAMINATION FINDINGS: The patient was alert and cooperative with the assessment. He accurately described events preceding his hospitalization. [facility] [address] [place] [address] CONSULTATION Name: MEG PORRAS Mabel Room #: 501A [facility] IN [facility].#: [id number] Admission: 01/08/18 Attend Phys: Joel Flores MD Discharge: Date of : 64 Report #: [id number] There is no evidence of aphasia. His thoughts are logical and goal oriented. There is no evidence of thought disorder. He does not report auditory or visual hallucinations. He denies anxiety or depression at this time. However, he does indicate having had a history of treatment for depression. His symptoms include sleep disturbance. He does not report difficulty with memory, word finding, attention or concentration. He states that his appetite is within normal limits. His performance on the MMSE 2 brief version is within normal limits with a raw score of 15 of 16. The patient was 2/3 for immediate recall of 3 items after a brief time delay and distraction. Performance on the MMSE 2 standard version is within normal limits with a raw score of 27 of 30. The patient was 4/5 for serial 7's. He had difficulty with copying a simple geometric design. The patient was unable to accurately draw a clock and place the numbers within the clock. Once a structure and numbers were placed, he could not indicate accurately the time. Letter fluency was within normal limits with a raw score of 29 and a T score of 48, which is at the second percentile. Category fluency is in the mild range of impairment with a raw score of 34, T score of 36 and percentile rank of 8. Overall, total fluency is in the low average range, suggesting mild impairment with a T score of 43 and percentile rank of 24. The patient was 4/8 on a brief abstract reasoning test suggesting an impairment with higher level conceptual processing. Similarly, his inability to draw a clock and place the numbers without increased explanation suggests executive dysfunction in regard to higher level abstract reasoning. 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 Unspecified depressive disorder by history. RECOMMENDATIONS: The patient will likely need increased supervision and structure at discharge to maintain safety. Decreased insight into aspects of his cognitive functioning places him at an increased safety risk. Initial supervision to ensure that he can function without assistance is necessary. The patient may also benefit from an outpatient neuropsychological evaluation to clarify the extent of cognitive impairment and provide recommendations for compensation. [address] [address] CONSULTATION Name: MEG PORRAS Mabel Room #: 501-A ADM IN M.R.#: [id number] Admission: 01/08/18 Attend Phys: Joel Flores MD Discharge: Date of : 64 Report #: [id number] Thank you very much for allowing me to provide the consultation on this patient. <ELECTRONICALLY SIGNED> By: Gerard Boyle, PhD 01/11/18 1334 [id number] Gerard Boyle, PhD /nt
--- NOTE | ~2018-01-08 | PLAN ---
[facility] [place] [address] REHAB UNIT PLAN OF CARE Name: MEG PORRAS Room #: 501-A ADM IN ..#: [id number] Admission: 01/08/18 Attend Phys: Joel Flores MD Discharge: Date of : 64 Report #: [id number] THIS REPORT FOR: //name// CC: Joel Mcwilliams DATE OF SERVICE: 01/10/2018 SUBJECTIVE: The patient is seen back today in followup. He is in no distress. Last recorded temperature 97.4, pulse 72, respirations 18, blood pressure 112/82. He is alert, pleasant. No focal calf swelling. He is moving the left upper extremity a little bit better than when I last saw him. It is definitely clumsy. I would grade the strength as probably a grade 3-3+/5. I appreciate ortho assistance regarding his chronic foot and ankle issues. Functionally, the patient has been involved in the therapy program. Transfers are min assist with gait 150 feet max assist. He has used a walker. He has been min assist for shorter distances with a walker. Stairs are 4 steps mod assist. In occupational therapy, lower body dressing with moderate assistance and upper body dressing with supervision. ASSESSMENT: 1. Multiple cerebrovascular accidents. 2. Left hemiparesis. 3. Left hemisensory deficit. 4. Functional mobility and ADL deficits. 5. Acute respiratory failure. 6. Hypertensive emergency. 7. Elevated blood sugars. 8. Chronic pain with malfunctioning intrathecal pump. 9. Obstructive sleep apnea. 10. Disability with multiple prior lower extremity surgeries. 11. History of bilateral feet pain with history of surgeries. Ortho has been consulted. PLAN: The overall plan of care is based on the preadmission screen, post-admission physician evaluation, and information garnered from therapy assessments. 1. Estimated length of stay is probably at least 10 days to 2 weeks pending progress. 2. Medical prognosis is reasonably good. 3. Anticipated interventions include the interdisciplinary acute inpatient rehabilitation program with the goal of maximizing his functional independence, so he can return back to the home setting. 4. Anticipated functional outcomes would be for him to become modified independent with transfers, mobility issues at the walker level with ability to perform his ADLs. [address] [address] REHAB UNIT PLAN OF CARE Name: MEG PORRAS Room #: 501-A [facility] IN ..#: [id number] Admission: 01/08/18 Attend Phys: Joel Flores MD Discharge: Date of : 64 Report #: [id number] 5. Discharge destination would be back to the home setting where he lives in an apartment alone. He does have steps in. 6. Expected therapy by discipline includes PT and OT 1-1/2 hours per day each five days a week throughout the duration of the acute inpatient rehabilitation stay. <ELECTRONICALLY SIGNED> By: Joel Flores MD 01/16/18 1124 0916 0000 Joel Flores MD /[facility]
--- NOTE | ~2018-01-08 | HC ---
[facility] [place] [address] CONSULTATION Name: MEG PORRAS Mabel Room #: 501-A [facility] IN ..#: [id number] Admission: 01/08/18 Attend Phys: Joel Flores MD Discharge: 01/16/18 Date of : 64 Report #: [id number] THIS REPORT FOR: //name// CC: Joel Mcwilliams DATE OF SERVICE: 01/10/2018 REASON FOR CONSULTATION: Prior left foot surgery. HISTORY OF PRESENT ILLNESS: The patient is a 57-year-old male who approximately 10 years ago had multiple surgeries for his left foot. He appears to have had a mid foot and subtalar fusion. He reports doing pretty well, noticing more of pain and instability in his right ankle and foot postoperatively from his left. He does not report any significant new swelling or pain or instability in either foot or ankle. He reports predominantly wearing a Cam walker to his left foot most of the time for comfort. He has in the past worn a lace-up ankle brace or a Cam walker wearing at different times. On the right, he felt the Cam walker was more supportive. REVIEW OF SYSTEMS: NEUROLOGIC: Denies significant numbness or tingling in his extremities. 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 He has had multiple surgeries on the left ankle. PAST MEDICAL HISTORY: Significant for a recent cerebrovascular accident with left-sided weakness, chronic kidney disease, hypertension, cardiomyopathy, chronic pain syndrome, history of asthma, pulmonary embolism, obstructive sleep apnea and diabetes. MEDICATIONS: The MAR was reviewed. Please see the [facility] for a full list of medications. ALLERGIES: TAPE, TETANUS TOXOID, BENZOIC ACID AND AMITRIPTYLINE. PAST SURGICAL HISTORY: He has had multiple orthopedic surgeries, as above. SOCIAL HISTORY: He denies smoking or drinking alcohol. He lives alone in an apartment. He is on disability due to his multiple orthopedic issues. 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 PHYSICAL EXAMINATION: GENERAL: The patient is alert and oriented. He is well-developed, well-nourished male in no acute distress. [address] [address] CONSULTATION Name: GOMEZMariMEG Room #: 501-A [facility]#: [id number] Admission: 01/08/18 Attend Phys: Joel Flores MD Discharge: 01/16/18 Date of : 64 Report #: [id number] VITAL SIGNS: His most recent vital signs show temperature of 36.3, heart rate is 72, respiration rate 18, blood pressure 112/82 and pulse oximetry is 95% on room air. EXTREMITIES: Examination of his right lower extremity, distally neurovascularly intact. Brisk capillary refill. Sensation is intact to light touch throughout. EHL, FHL, dorsiflexion and plantar flexion are intact. He does not have any significant tenderness to palpation to the foot, ankle, leg or knee. He has multiple surgical scars on the right knee. This is all on the right. Examination of the left lower extremity, sensation is grossly intact. He is able to wiggle his toes. He has a deformed foot with loss of arch and multiple surgical incisions. There is no edema, no erythema and no tenderness. He has decreased ankle motion. He has no tenderness at the tibia and no tenderness at the knee. There is no pain with bilateral hip or knee motion or ankle motion. RADIOGRAPHIC DATA: Two views of the right foot show anterior and posterior spurring at the tibiotalar joint as well as posterior loose bodies at the subtalar joint. AP and lateral of the left foot show a fused subtalar joint and midfoot fusion with distal lateral most screw broken and one of the screws broken on the medial side. There does not appear to be any loosening. IMPRESSION AND PLAN: 1. Apparently well-healed subtalar and midfoot fusions on the left with screw breakage, without evidence of loosening. I discussed with him that I feel that this is stable at this point and would recommend that he either follow up with my partner, Dr. Gopi Tracy or see , his original treating surgeon for any further issues. 2. Right ankle arthrosis, with possibly some instability. I will write for him to have either a Cam walker or a lace-up ankle brace and will discuss with my partner, Dr. Gopi Tracy, one of my [facility] partners, formally [facility] orthopedic surgery partners, who will check on this patient one time this weekend. Questions were encouraged and answered to the best of my ability. <ELECTRONICALLY SIGNED> By: Nandini Ko MD 01/23/18 [id number] Nandini Ko MD /nt
[~2018-01-08 14:02] MED LIST changes: +ASA5UEC PO; +ASPIR 8181 MG PO; +BENADRYL25 MG PO; +CARVEDILOL25 MG PO; +CEFDINIR300 MG PO; +COZAAR 50 MG TA50 M1 PO; +HYDROCODONE-AP1 EAC6 PO; +IBUPROFEN 800800 M1 PO; +LANTUS100 UNIT/M SUBQ; +LOPERAMIDE 2 MG2 M1 PO; +NORVASC10 MG PO; +NOVOLOG100 UNIT/1 SUBQ; +PEPCID20 MG PO; +PLAVIX 75 MG TA75 M1 PO; +PREDNISONE 10 M10 MG PO; +TORSEMIDE20 MG PO
[2018-01-08 16:30] VITALS: BP 148/97
[2018-01-08 20:18] VITALS: BP 153/93
[2018-01-09 07:22] LABS: HEMATOCRIT 49.1 % (42.0-52.0); HEMOGLOBIN 16.7 gm/dL (14.0-18.0); MCHC 34.1 g/dL (28.0-37.0); MCV 85.2 fL (80.0-100.0); RBC 5.76 mil/uL (4.50-6.00); RDW 14.3 % (10.5-14.5); WBC 12.7 thou/uL (4.0-11.0)
[2018-01-09 07:40] LABS: ALBUMIN 2.9 g/dL (3.4-5.0); CALCIUM 8.8 mg/dL (8.5-10.1); CREATININE 1.1 mg/dL (0.7-1.3); PHOSPHORUS 3.5 mg/dL (2.5-4.9); POTASSIUM 3.4 mmol/L (3.5-5.1)
[2018-01-09 08:15] VITALS: BP 149/102
[2018-01-09 20:03] VITALS: BP 112/82
[2018-01-10 07:30] VITALS: BP 172/111
[2018-01-10 12:00] VITALS: BP 119/83
[2018-01-10 19:49] VITALS: BP 142/72
[2018-01-11 04:03] LABS: ALBUMIN 2.9 g/dL (3.4-5.0); CALCIUM 9.2 mg/dL (8.5-10.1); CREATININE 1.2 mg/dL (0.7-1.3); PHOSPHORUS 4.6 mg/dL (2.5-4.9); POTASSIUM 3.4 mmol/L (3.5-5.1)
[2018-01-11 08:00] VITALS: BP 161/109
[2018-01-11 19:15] VITALS: BP 114/75
[2018-01-12 07:22] VITALS: BP 151/96
[2018-01-12 19:00] VITALS: BP 112/70
[2018-01-13 04:32] LABS: BASOPHILS 0.2 % (0.0-2.0); RDW 14.2 % (10.5-14.5)
[2018-01-13 04:38] LABS: ABSOLUTE NEUTROPHILS 7.2 thou/uL (1.4-8.2); EOSINOPHILS 0.9 % (0.0-3.0); HEMATOCRIT 46.6 % (42.0-52.0); LYMPHOCYTES 31.4 % (24.0-44.0); MCH 29.1 pg (26.0-34.0); MCHC 34.4 g/dL (28.0-37.0); MCV 84.4 fL (80.0-100.0); MONOCYTES 5.1 % (1.0-8.0); PLATELET COUNT 207 thou/uL (150-400); POLYS 62.4 % (36.0-66.0); RBC 5.52 mil/uL (4.50-6.00); WBC 11.5 thou/uL (4.0-11.0)
[2018-01-13 04:39] LABS: ALBUMIN 2.7 g/dL (3.4-5.0); CALCIUM 8.8 mg/dL (8.5-10.1); CREATININE 1.3 mg/dL (0.7-1.3); PHOSPHORUS 4.6 mg/dL (2.5-4.9); POTASSIUM 3.3 mmol/L (3.5-5.1)
[2018-01-13 07:30] VITALS: BP 144/87
[2018-01-13 11:20] VITALS: BP 116/54
[2018-01-13 20:01] VITALS: BP 101/69
[2018-01-14 08:00] VITALS: BP 152/95
[2018-01-14 19:25] VITALS: BP 129/77
[2018-01-15 07:30] VITALS: BP 144/84
[2018-01-15 17:00] VITALS: BP 133/89
[2018-01-15 20:00] VITALS: BP 121/82
[2018-01-16] MEDS ORDERED: COZAAR 50 MG TA50 M1 PO (07:47)
[2018-01-16] MEDS ORDERED: ASPIR 8181 MG PO (07:47)
[2018-01-16] MEDS ORDERED: VITAMIN B-12500 MCG PO (07:47)
[2018-01-16] MEDS ORDERED: PREDNISONE 10 M10 MG PO (07:47)
[2018-01-16] MEDS ORDERED: PLAVIX 75 MG TA75 M1 PO (07:47)
[2018-01-16] MEDS ORDERED: NOVOLOG100 UNIT/1 SUBQ (07:47)
[2018-01-16] MEDS ORDERED: FLONASE 0.05%50 MCG NASAL (07:47)
[2018-01-16] MEDS ORDERED: CARVEDILOL25 MG PO (07:47)
[2018-01-16] MEDS ORDERED: TORSEMIDE20 MG PO (07:47)
[2018-01-16] MEDS ORDERED: PEPCID20 MG PO (07:47)
[2018-01-16] MEDS ORDERED: NORVASC10 MG PO (07:47)
[2018-01-16] MEDS ORDERED: LANTUS100 UNIT/M SUBQ (07:47)
[2018-01-16] MEDS ORDERED: ERGOCALCIF50000 UNIT PO (07:47)
[2018-01-16 07:50] VITALS: BP 139/84
[2018-01-16] MEDS ORDERED: ACCUCHECK MACHINE (07:56)
[2018-01-16] MEDS ORDERED: VENTOLIN HFA 1818 GM INH (07:56)
[2018-01-16 10:22] VITALS: BP 139/84
[2018-01-23] MEDS ORDERED: BENICAR40 MG PO (13:34)
== END 2018-01-16 12:37 | disposition home health service (06) | DRG 64 ==
LOC: ENTRNSPT 01-16 12:12 → EDTRNSPTSTS 01-16 12:16
PROVIDERS: Family Medicine; Hospitalist; Physical Medicine & Rehabilitation
DX: I63.9 Cerebral infarction, unspecified (principal); I26.99 Other pulmonary embolism without acute cor pulmonale; J96.01 Acute respiratory failure with hypoxia; J96.02 Acute respiratory failure with hypercapnia; I42.9 Cardiomyopathy, unspecified; G81.94 Hemiplegia, unspecified affecting left nondominant side; I16.1 Hypertensive emergency; I13.0 Hypertensive heart and chronic kidney disease with heart failure and stage 1 through stage 4 chronic kidney disease, or unspecified chronic kidney disease; N18.9 Chronic kidney disease, unspecified; J45.909 Unspecified asthma, uncomplicated; G47.33 Obstructive sleep apnea (adult) (pediatric); E11.22 Type 2 diabetes mellitus with diabetic chronic kidney disease; G31.84 Mild cognitive impairment of uncertain or unknown etiology; F32.9 Major depressive disorder, single episode, unspecified; G89.4 Chronic pain syndrome; Z60.2 Problems related to living alone; M19.071 Primary osteoarthritis, right ankle and foot; R53.81 Other malaise; E87.6 Hypokalemia; I50.9 Heart failure, unspecified; D64.9 Anemia, unspecified; E66.9 Obesity, unspecified; R60.9 Edema, unspecified; E53.8 Deficiency of other specified B group vitamins; E55.9 Vitamin D deficiency, unspecified; M79.672 Pain in left foot; M79.671 Pain in right foot; Z88.7 Allergy status to serum and vaccine; Z88.8 Allergy status to other drugs, medicaments and biological substances; Z91.041 Radiographic dye allergy status; Z86.711 Personal history of pulmonary embolism; Z79.01 Long term (current) use of anticoagulants; Z68.35 Body mass index [BMI] 35.0-35.9, adult; Z91.14 Patient's other noncompliance with medication regimen
CPT/HCPCS: 10112

== ENCOUNTER → 2018-01-23 | Outpatient (CLI) | payer OTHER ==
[~2018-01-23] MED LIST changes: +ACCUCHECK MACHINE; +BENICAR40 MG PO; +ERGOCALCIF50000 UNIT PO; +FLONASE 0.05%50 MCG NASAL; +VENTOLIN HFA 1818 GM INH; +VITAMIN B-12500 MCG PO
== END ==
LOC: RAD 14:44
DX: J40 Bronchitis, not specified as acute or chronic (principal)

== ENCOUNTER → 2018-01-23 | Outpatient (CLI) | payer OTHER ==
[~2018-01-23] VITALS: Ht 180.3 cm; Wt 111.1 kg
[2018-01-23 13:20] VITALS: BP 113/72
[2018-01-23 15:39] LABS: ABSOLUTE NEUTROPHILS 6.5 thou/uL (1.4-8.2); BASOPHILS 0.9 % (0.0-2.0); EOSINOPHILS 3.4 % (0.0-3.0); HEMATOCRIT 42.9 % (42.0-52.0); HEMOGLOBIN 14.9 gm/dL (14.0-18.0); LYMPHOCYTES 15.6 % (24.0-44.0); MCH 28.9 pg (26.0-34.0); MCHC 34.6 g/dL (28.0-37.0); MCV 83.3 fL (80.0-100.0); MONOCYTES 6.9 % (1.0-8.0); PLATELET COUNT 146 thou/uL (150-400); POLYS 73.2 % (36.0-66.0); RBC 5.15 mil/uL (4.50-6.00); RDW 14.1 % (10.5-14.5); WBC 8.8 thou/uL (4.0-11.0)
[2018-01-23 16:03] LABS: ANION GAP 12 mmol/L (7-16); BUN 26 mg/dL (7-18); CALCIUM 9.2 mg/dL (8.5-10.1); CHLORIDE 101 mmol/L (98-107); CHOLESTEROL 130 mg/dL (<200); CO2 25 mmol/L (21-32); CREATININE 1.1 mg/dL (0.7-1.3); GLUCOSE 335 mg/dL (74-106); HDL CHOLESTEROL 46 mg/dL (>40); LDL CHOLESTEROL 25 mg/dL (<100); POTASSIUM 3.6 mmol/L (3.5-5.1); SGOT 21 U/L (15-37); SGPT 37 U/L (30-65); SODIUM 138 mmol/L (136-145); TC:HDL 2.8 Ratio (Not establshd); TOTAL BILIRUBIN 0.4 mg/dL (<0.1-1.0); TRIGLYCERIDE 299 mg/dL (<150); VLDL 60 mg/dL (<40)
[2018-01-23 16:04] LABS: SERUM ASSESSMENT Clear
[2018-01-24 03:14] LABS: GLYCOHEMOGLOBIN (HGB A1C) 10.4 % (4.8-5.6)
== END ==
LOC: SEN 09:28
PROVIDERS: Emergency Medicine
DX: I11.0 Hypertensive heart disease with heart failure (principal); I50.9 Heart failure, unspecified; J45.909 Unspecified asthma, uncomplicated; J40 Bronchitis, not specified as acute or chronic; F41.9 Anxiety disorder, unspecified; F32.9 Major depressive disorder, single episode, unspecified; G47.30 Sleep apnea, unspecified; R79.89 Other specified abnormal findings of blood chemistry

== ENCOUNTER 2019-09-13 16:08 | Emergency (ER) | payer OTHER ==
[~2019-09-13] VITALS: Ht 180.3 cm; Wt 131.5 kg
[2019-09-13] MEDS ORDERED: CLEOCIN HCL300 MG PO ×2 (16:27→16:29)
[2019-09-13] MEDS ORDERED: NORCO 5-325 TA1 EAC1 PO (16:27)
[2019-09-13] MEDS ORDERED: DIOVAN320 MG PO (16:34)
[2019-09-13] MEDS ORDERED: SINGULAIR 10 MG10 MG PO (16:35)
[2019-09-13] MEDS ORDERED: ZADITOR5 M1 OPHTHALMIC (16:35)
[2019-09-13 16:37] VITALS: BP 161/91
== END 2019-09-13 16:40 | disposition home or self-care (01) ==
LOC: ER 16:08
DX: K04.7 Periapical abscess without sinus (principal); J45.909 Unspecified asthma, uncomplicated; G43.909 Migraine, unspecified, not intractable, without status migrainosus; G47.30 Sleep apnea, unspecified; I11.0 Hypertensive heart disease with heart failure; I50.9 Heart failure, unspecified; F32.9 Major depressive disorder, single episode, unspecified; F41.9 Anxiety disorder, unspecified; Z90.89 Acquired absence of other organs; Z98.890 Other specified postprocedural states; Z86.73 Personal history of transient ischemic attack (TIA), and cerebral infarction without residual deficits; Z88.7 Allergy status to serum and vaccine; Z88.6 Allergy status to analgesic agent

== ENCOUNTER → 2020-03-09 | Outpatient (CLI) | payer OTHER ==
[~2020-03-09] MED LIST changes: +CLEOCIN HCL300 MG PO; +DIOVAN320 MG PO; +NORCO 5-325 TA1 EAC1 PO; +SINGULAIR 10 MG10 MG PO; +ZADITOR5 M1 OPHTHALMIC
== END ==
LOC: SJCVCIMAG 02-08 13:44
DX: I07.1 Rheumatic tricuspid insufficiency (principal); E11.9 Type 2 diabetes mellitus without complications; I50.23 Acute on chronic systolic (congestive) heart failure; E78.5 Hyperlipidemia, unspecified; I10 Essential (primary) hypertension; I42.9 Cardiomyopathy, unspecified; Z79.4 Long term (current) use of insulin; Z86.73 Personal history of transient ischemic attack (TIA), and cerebral infarction without residual deficits

== ENCOUNTER → 2020-06-09 | Outpatient (CLI) | payer OTHER | LOC: SJCVC 13:02 | PROVIDERS: ATTEND Internal Medicine Cardiovascular Disease | DX: Z79.899 Other long term (current) drug therapy (principal) ==

== ENCOUNTER → 2020-11-11 | Outpatient (CLI) | payer OTHER | LOC: SJCVC 15:25 | PROVIDERS: ATTEND Internal Medicine Cardiovascular Disease | DX: R94.31 Abnormal electrocardiogram [ECG] [EKG] (principal); I44.5 Left posterior fascicular block; I11.0 Hypertensive heart disease with heart failure; I50.23 Acute on chronic systolic (congestive) heart failure; E11.9 Type 2 diabetes mellitus without complications; I42.9 Cardiomyopathy, unspecified; M19.90 Unspecified osteoarthritis, unspecified site; J45.909 Unspecified asthma, uncomplicated; E66.9 Obesity, unspecified; G89.29 Other chronic pain; Z79.4 Long term (current) use of insulin; Z79.899 Other long term (current) drug therapy; Z86.73 Personal history of transient ischemic attack (TIA), and cerebral infarction without residual deficits ==

== ENCOUNTER → 2021-01-06 | Outpatient (CLI) | payer OTHER | LOC: SJCVC 12:46 | PROVIDERS: ATTEND Nurse Practitioner Adult Health | DX: R94.31 Abnormal electrocardiogram [ECG] [EKG] (principal); I44.5 Left posterior fascicular block; I42.8 Other cardiomyopathies; E78.5 Hyperlipidemia, unspecified; I50.23 Acute on chronic systolic (congestive) heart failure; I34.0 Nonrheumatic mitral (valve) insufficiency; J45.909 Unspecified asthma, uncomplicated; E11.9 Type 2 diabetes mellitus without complications; G89.29 Other chronic pain; E66.9 Obesity, unspecified; M19.90 Unspecified osteoarthritis, unspecified site; Z90.49 Acquired absence of other specified parts of digestive tract; Z98.890 Other specified postprocedural states; Z88.8 Allergy status to other drugs, medicaments and biological substances; Z79.4 Long term (current) use of insulin; Z82.49 Family history of ischemic heart disease and other diseases of the circulatory system; Z86.73 Personal history of transient ischemic attack (TIA), and cerebral infarction without residual deficits; Z79.899 Other long term (current) drug therapy; Z87.01 Personal history of pneumonia (recurrent); Z88.1 Allergy status to other antibiotic agents ==

== ENCOUNTER → 2021-03-07 | Outpatient (CLI) | payer OTHER | LOC: SJCVC 10:56 | PROVIDERS: ATTEND Internal Medicine Cardiovascular Disease | DX: I50.23 Acute on chronic systolic (congestive) heart failure (principal); E11.9 Type 2 diabetes mellitus without complications; I42.9 Cardiomyopathy, unspecified; E78.2 Mixed hyperlipidemia; G89.29 Other chronic pain; Z68.44 Body mass index [BMI] 60.0-69.9, adult; Z79.4 Long term (current) use of insulin; Z79.899 Other long term (current) drug therapy; Z86.73 Personal history of transient ischemic attack (TIA), and cerebral infarction without residual deficits ==

== ENCOUNTER → 2021-07-25 | Outpatient (CLI) | payer OTHER | LOC: SJCVCIMAG 08:58 | PROVIDERS: ATTEND Internal Medicine Cardiovascular Disease | DX: R94.31 Abnormal electrocardiogram [ECG] [EKG] (principal); I07.1 Rheumatic tricuspid insufficiency; I42.8 Other cardiomyopathies; I11.0 Hypertensive heart disease with heart failure; I50.9 Heart failure, unspecified; E78.5 Hyperlipidemia, unspecified; E11.9 Type 2 diabetes mellitus without complications; M19.90 Unspecified osteoarthritis, unspecified site; J45.909 Unspecified asthma, uncomplicated; M25.569 Pain in unspecified knee; G89.29 Other chronic pain; E66.9 Obesity, unspecified; M89.9 Disorder of bone, unspecified; Z79.4 Long term (current) use of insulin; Z79.899 Other long term (current) drug therapy; Z86.73 Personal history of transient ischemic attack (TIA), and cerebral infarction without residual deficits; Z82.49 Family history of ischemic heart disease and other diseases of the circulatory system; Z88.1 Allergy status to other antibiotic agents; Z88.8 Allergy status to other drugs, medicaments and biological substances ==

== ENCOUNTER → 2021-12-26 | Outpatient (CLI) | payer OTHER | LOC: CAT 13:30 | PROVIDERS: ATTEND Surgery | DX: N62 Hypertrophy of breast (principal); N64.59 Other signs and symptoms in breast; K76.0 Fatty (change of) liver, not elsewhere classified; N32.89 Other specified disorders of bladder; M51.36 Other intervertebral disc degeneration, lumbar region; M48.061 Spinal stenosis, lumbar region without neurogenic claudication; N20.0 Calculus of kidney; E11.9 Type 2 diabetes mellitus without complications; I50.9 Heart failure, unspecified ==